=== PATIENT | female | born 1980 | race African-American/Black ===

== ENCOUNTER 2016-06-04 18:38 | Emergency (ER) | payer OTHER ==
[~2016-06-04] VITALS: Ht 166.4 cm; Wt 78.9 kg
--- NOTE | 2016-06-04 19:22 | ED CARDIAC/CP/PALPITATIONS ---
History of Present Illness General Chief Complaint: Chest Pain Stated Complaint: CHEST TIGHTNESS/PAIN SINCE THIS MORNING Source: patient Exam Limitations: no limitations Vital Signs & Intake/Output Vital Signs & Intake/Output Vital Signs Date Time Temp Pulse Resp B/P Pulse O2 O2 Flow FiO2 Ox Delivery Rate 06/04 2209 96.8 62 18 112/68 98 Room Air 06/04 2110 69 110/70 06/04 1943 98 Room Air 06/04 1855 97.7 66 18 157/97 99 Room Air ED Intake and Output 06/05 0000 06/04 1200 Intake Total Output Total Balance Patient 174 lb Weight Reconcile Medications Norgestimate-Ethinyl Estradiol (Ortho Tri-Cyclen 28 Tablet) 3HKRSS2 28 TABLET 1 TAB PO DAILY CONTROL (Reported) Valacyclovir HCl (Valtrex) 1,000 MG TABLET 1 TAB PO PRN ANTIVIRAL (Reported) Triage Note: PT STTAES THAT SHE HAS BEEN HAVING MID STERNAL CHEST TIGHTNESS SINCE THIS AM, PT STATES THAT SHE IS UNDER A LOT OF STRESS AND HAS BEEN STAYING AT THE [facility] WITH HER 2 CHILDREN SINCE MARCH AND THAT SHE IS IN SCHOOL. PAIN IS NON RADIATING . Triage Nurses Notes Reviewed? yes Onset: Gradual Duration: intermittent Quality/Severity: mild Location: substernal Radiation: no radiation Activities at Onset: none : No Patient currently breastfeeds: No HPI: Patient is a 35-year-old female with an unremarkable past medical history since emergency room saying that today patient woke up in her normal state of health patient states that she was on her way driving to school to take and exam in which she suddenly had anterior chest tightness that after the exam was done the chest tightness resolved however chest tightness then recurred for approximately one to 2 hours then has been resolved ever since. Patient denies having similar symptoms in the past. Denies any smoking history or illicit drug use or alcohol use. Denies any fever, chills, arm pain jaw pain nausea vomiting , hemoptysis, leg swelling, palpitations, cough, hemoptysis. Denies any history of DVT or PE denies any recent travel recent surgery. Patient does take oral contraceptives. Patient states that deep inhalation and upper extremity movements make chest pain worse (COLLEEN RYAN,YOHAN) Past History Travel History Traveled to [place] past 21 day No Medical History Any Pertinent Medical History? none Neurological: NONE EENT: NONE Cardiovascular: NONE Respiratory: NONE Gastrointestinal: NONE Hepatic: NONE Renal: NONE Musculoskeletal: NONE Psychiatric: NONE Endocrine: NONE Blood Disorders: NONE Cancer(s): NONE CHIEF TECHNICIAN X RAY/Reproductive: NONE Surgical History Surgical History: non-contributory Psychosocial History What is your primary language Malaysian Tobacco Use: Never used ETOH Use: denies use Illicit Drug Use: denies illicit drug use Family History Hx Contributory? No (YOHAN RINALDI) Review of Systems Review of Systems Constitutional: Reports: no symptoms. EENTM: Reports: no symptoms. Respiratory: Reports: see HPI. Denies: short of breath. Cardiovascular: Reports: see HPI. GI: Reports: no symptoms. Genitourinary: Reports: no symptoms. Musculoskeletal: Reports: no symptoms. Skin: Reports: no symptoms. Neurological/Psychological: Reports: no symptoms. Hematologic/Endocrine: Reports: no symptoms. Immunologic/Allergic: Reports: no symptoms. All Other Systems: Reviewed and Negative (YOHAN RINALDI) Physical Exam Physical Exam General Appearance: no apparent distress, alert Cardiovascular: regular rate/rhythm Comments: Well-developed well-nourished person in no acute distress HEENT: Normal EENT exam, extraocular motion intact, no nystagmus. Pupils equally round and reactive to light and accommodation. Nose is atraumatic. External auditory canal and Tympanic membranes clear. Pharynx normal. No swelling or edema. Neck: Supple, no lymphadenopathy, normal range of motion without pain or tenderness Back: Nontender, no CVA tenderness Cardiovascular: Regular rate and rhythms no murmurs rubs or gallops, normal JVP Respiratory: Substernal chest wall point tenderness noted. No respiratory distress.breath sounds clear to auscultation bilaterally Abdomen: Soft, nontender nondistended, no appreciable organomegaly. Normal bowel sounds. No ascites Extremity: No edema, no calf tenderness to palpation, normal and equal pulses. Upper extremity-bilateral horizontal abduction reproduced chest wall pain 5 out of 5 strength Neuro: Alert oriented x3, motor sensory normal, cranial nerves II through XII grossly intact. Skin: No appreciable rash on exposed skin, skin is warm and dry. Psych: Mood and affect is normal, memory and judgment is normal. Core Measures ACS in differential dx? Yes Severe Sepsis Present: No Septic Shock Present: No (YOHAN RINALDI) Progress Differential Diagnosis: AMI, aortic dissection, atrial fibrillation, cholecystitis, CHF/pulm edema, costochondritis, hyperkalemia, hypovolemia, hyperthyroid, hyperventilation, intracranial hemorrhage, musculoskeletal pain, myocarditis, pancreatitis, pericarditis, pneumonia, pneumothorax, PSVT, pulmonary embolism, PUD/GERD, PVCs/PACs, respiratory failure, rib fracture, sepsis, unstable angina, V-fib/V-Tach, WPW syndrome Plan of Care: Orders Procedure Date/time Status Telemetry/Ribbing Machine Operator 06/04 1928 Active TROPONIN LEVEL 06/04 1928 Complete HUMAN BETA HCG SCREEN 06/04 1928 Complete D-DIMER 06/04 1928 Complete COMPREHENSIVE METABOLIC PANEL 06/04 1928 Complete CBC WITHOUT DIFFERENTIAL 06/04 1928 Complete EKG 06/04 1840 Active Laboratory Tests 06/04/162001: D-Dimer 243 H, CBC w Diff NO MAN DIFF REQ, RBC 3.31 L, MCV 94.9, MCH 31.4 H, RDW 13.1, MPV 7.6, Gran % 42.3, Lymphocytes % 49.5, Monocytes % 6.4, Eosinophils % 1.3, Basophils % 0.5, Absolute Granulocytes 2.4, Absolute Lymphocytes 2.8, Absolute Monocytes 0.4, Absolute Eosinophils 0.1, Absolute Basophils 0, PUBS MCHC 33.1 06/04/161928: Anion Gap 12, Estimated GFR > 60, BUN/Creatinine Ratio 17.1, Glucose 104 H, Calcium 8.9, Total Bilirubin 0.4, AST 19, ALT 13, Alkaline Phosphatase 34, Troponin I < 0.01, Total Protein 7.5, Albumin 4.1, Globulin 3.4, Albumin/ Globulin Ratio 1.2, Total Beta HCG NEGATIVE Patient on initial examination was in no apparent distress. Patient has reproducible pain upon palpation the chest wall deep inhalation and resisted range of motion of upper extremities. I suspect at this time the patient has chest wall or costochondritis symptoms. Patient's initial EKG was unremarkable patient has been on pastor to be normal sinus rhythm. Blood work was unremarkable especially troponin and d-dimer was unremarkable essentially ruling out pulmonary embolism. Patient at rest denies any chest pain however with movement it is reproducible. Patient also has had a 10 hour history of complaints in which patient's initial troponin was negative essentially ruling out any ischemia EKG was unremarkable. At this time I do not suspect patient have a cardiovascular event. I discussed and stressed the importance of close monitoring and if symptoms worsen to return to emergency room and patient will comply. Patient was given copies of chest x-ray and blood work. Patient was strongly advised to follow up with primary care doctor in 2 days if no better and to receive outpatient ultrasound for incidental finding of thyroid nodule. Patient was informed of all blood work EKG and chest x-ray and had no questions on discharge patient on discharge had no chest tightness or pain (YOHAN RINALDI) Diagnostic Imaging: Viewed by Me: Radiology Read. Radiology Impression: no fracture Initial ED EKG: normal intervals, normal p-waves, SINUS RHYTHM NOTED AT 58 BPM Comments: PATIENT: ILA BRITO PRESENT AGE: 35 PATIENT ACCOUNT NO: [id number] : 80 LOCATION: [facility] ORDERING PHYSICIAN: YOHAN RYAN SERVICE DATE: 06/04/16 EXAM TYPE: RAD - XRY-CHEST XRAY, PA AND LATERAL EXAMINATION: XR CHEST CLINICAL INFORMATION: 35-year-old female with chest pain. COMPARISON: None. TECHNIQUE: PA and lateral views of the chest were obtained. FINDINGS: No significant abnormality is noted involving the heart, lungs, mediastinum, bony thorax, or soft tissues. Mild deviation of the trachea to the left at the thoracic inlet could reflect enlargement of the right lobe of thyroid gland. IMPRESSION: No acute disease in the chest. Question enlargement of the right lobe of the thyroid gland. (YOHAN RINALDI) Departure Departure Disposition: HOME OR SELF CARE Condition: Stable Clinical Impression Primary Impression: Chest wall pain Secondary Impressions: Thyroid nodule Referrals: LINETTE MNEA DO (PCP/Family) Additional Instructions: discussed begin [id number] ibuprofen for pain and inflammation. Begin icing the area directly 20 minutes every 2 hours. If no better in 2 days follow -up with primary care doctor. If symptoms worsen or if you develop a concerning symptom return to emergency room. Please follow-up with your primary care doctor for evaluation of the thyroid nodules., Departure Forms: Customer Survey General Discharge Information (YOHAN RINALDI) PA/CODING AND REIMBURSEMENT SPECIALIST Co-Sign Statement Statement: ED Attending supervision documentation- [] I saw and evaluated the patient. I have also reviewed all the pertinent lab results and diagnostic results. I agree with the findings and the plan of care as documented in the PA's/CODING AND REIMBURSEMENT SPECIALIST's documentation. [X] I have reviewed the ED Record and agree with the PA's/CODING AND REIMBURSEMENT SPECIALIST's documentation. [] Additions or exceptions (if any) to the PAs/CODING AND REIMBURSEMENT SPECIALIST's note and plan are summarized below: [] (URVASHI DOMINGUEZ,KRISH Paul) Critical Care Note Critical Care Note Critical Care Time: non-applicable (YOHAN RINALDI)
[2016-06-04 20:27] LABS: ABSOLUTE BASOPHIL COUNT 0 /CUMM (0.0-0.2); ABSOLUTE EOSINOPHIL COUNT 0.1 /CUMM (0.0-0.7); ABSOLUTE GRANULOCYTE CT 2.4 /CUMM (1.4-6.5); ABSOLUTE LYMPH COUNT 2.8 /CUMM (1.2-3.4); ABSOLUTE MONOCYTE COUNT 0.4 /CUMM (0.10-0.60); BASOPHIL % 0.5 % (0.0-2.0); EOSINOPHIL % 1.3 % (0-5); GRANULOCYTE % 42.3 % (42.2-75.2); HEMATOCRIT 31.5 % (37-47); MEAN CORPUSCULAR HGB 31.4 PG (27.0-31.0); MEAN CORPUSCULAR HGB CONC 33.1 G/DL (33.0-37.0); MEAN CORPUSCULAR VOLUME 94.9 FL (81.0-99.0); MEAN PLATELET VOLUME 7.6 FL (7.4-10.4); PLATELET COUNT 236 /CUMM (130-400); RBC DISTRIBUTION WIDTH 13.1 % (11.5-14.5); RED BLOOD CELL CT 3.31 /CUMM (4.20-5.40); WHITE BLOOD CELL COUNT 5.6 /CUMM (4.8-10.8)
[2016-06-04] MEDS ORDERED: ORTHO TRI-CYCL1 EACH PO (20:32)
[2016-06-04] MEDS ORDERED: VALTREX1000 MG PO (20:33)
--- NOTE | 2016-06-04 22:00 | RADIOLOGY REPORT ---
EXAMINATION: XR CHEST CLINICAL INFORMATION: 35-year-old female with chest pain. COMPARISON: None. TECHNIQUE: PA and lateral views of the chest were obtained. FINDINGS: No significant abnormality is noted involving the heart, lungs, mediastinum, bony thorax, or soft tissues. Mild deviation of the trachea to the left at the thoracic inlet could reflect enlargement of the right lobe of thyroid gland. IMPRESSION: No acute disease in the chest. Question enlargement of the right lobe of the thyroid gland.
[2016-06-04 22:09] VITALS: BP 112/68
== END 2016-06-04 22:09 ==
LOC: ERH 18:38
PROVIDERS: Physician Assistant
DX: R07.89 Other chest pain (principal); E04.1 Nontoxic single thyroid nodule
CPT/HCPCS: 93005; 93010